=== PATIENT | female | born 2005 | race Caucasian/White ===

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

== ENCOUNTER 2023-10-15 16:36 | Inpatient (IN) | payer OTHER ==
[~2023-10-15] VITALS: Ht 144.8 cm; Wt 58.4 kg
[2023-10-16] VITALS (7 sets, daily range): BP systolic 111–113; BP diastolic 69–78; TEMP 98–100.2; O2SAT 96–98
[2023-10-16] MEDS ORDERED: MOM 30ML SUSPENSION UDC PO PRN (01:20)
[2023-10-16] MEDS ORDERED: MAALOX 30 ML SUSP *UDC PO PRN (01:20)
[2023-10-16 02:03] LABS: BASO % 0.2 % (0.0-1.0); EOS # 0.1 10^3/uL (0.0-0.5); EOS % 0.5 % (0.0-3.0); HEMATOCRIT 33.9 % (36.0-47.0); HEMOGLOBIN 11.4 g/dl (12.0-15.5); LYMPH # 1.9 10^3/uL (1.5-5.0); LYMPH % 10.2 % (24.0-44.0); MEAN CORPUSCULAR HEMOGLOBIN 29.1 pg (27.0-33.0); MEAN CORPUSCULAR HGB CONC 33.6 g/dl (32.0-36.5); MEAN CORPUSCULAR VOLUME 86.5 fl (80.0-96.0); MONO # 0.8 10^3/uL (0.0-0.8); MONO % 4.4 % (2.0-8.0); NEUTROPHILS # 15.8 10^3/uL (1.5-8.5); NEUTROPHILS % 84.1 % (36.0-66.0); PLATELET COUNT, AUTOMATED 327 10^3/uL (150-450); RED BLOOD COUNT 3.92 10^6/uL (4.00-5.40); WHITE BLOOD COUNT 18.8 10^3/uL (4.0-10.0)
[2023-10-16] MEDS: CETIRIZINE (ZyrTEC) 10 MG TAB PO SCH (02:07)
[2023-10-16] MEDS: PIPERACILLIN/TAZOBACTAM SOD 4.5 GM in D5W MINI-BAG PLUS 50 ML IV SCH (02:08)
[2023-10-16 02:14] LABS: INR 1.24; PROTHROMBIN TIME 15.2 SECONDS (12.5-14.5)
[2023-10-16 02:20] LABS: VENOUS BASE EXCESS -2.6 (-2.0-2.0); VENOUS HCO3 22.1 MMOL/L (23.0-27.0); VENOUS O2 SATURATION 85.6 % (60.0-80.0); VENOUS PARTIAL PRESSURE CO2 37.9 mmHg (38.0-50.0); VENOUS PARTIAL PRESSURE O2 50.9 mmHg (30.0-50.0); VENOUS PH 7.383 UNITS (7.330-7.430); VENOUS TOTAL CO2 23.2 MMOL/L (24.0-28.0)
[2023-10-16] MEDS: FLUTICASONE PROP 0.05% NASAL SPRAY 16 GM (FLONASE) NARES SCH (02:24)
[2023-10-16 02:35] LABS: ALKALINE PHOSPHATASE 121 U/L (46-116); ALT/SGPT 155 U/L (7.0-40); AST/SGOT 71 U/L (<34); BILIRUBIN,TOTAL 0.3 MG/DL (0.3-1.2); BLOOD UREA NITROGEN < 5 MG/DL (9-23); CALCIUM LEVEL 8.9 MG/DL (8.5-10.1); CARBON DIOXIDE LEVEL 25 MMOL/L (20-31); CHLORIDE LEVEL 108 MMOL/L (98-107); CREATININE FOR GFR 0.45 MG/DL (0.55-1.30); GLUCOSE, FASTING 114 MG/DL (60-100); MAGNESIUM LEVEL 1.8 MG/DL (1.8-2.4); POTASSIUM SERUM 3.6 MMOL/L (3.5-5.1); SODIUM LEVEL 139 MMOL/L (136-145); TOTAL PROTEIN 6.1 G/DL (5.7-8.2)
[2023-10-16] MEDS: NS 1,000 ML IV ONE (03:16)
[2023-10-16] MEDS: LINEZOLID 600 MG in IV 1 EA IV SCH (03:17)
[2023-10-16 03:47] LABS: PROCALCITONIN 0.28 ng/ml
[2023-10-16] MEDS: NS 1,000 ML IV SCH (04:18)
[2023-10-16] MEDS: ACETAMINOPHEN TAB 650MG DOSE (2X325MG) PO PRN (05:03)
[2023-10-16] MEDS: ENOXAPARIN 40MG/0.4ML SYRINGE (J1650 PER 10MG) SC SCH (08:29)
[2023-10-16] MEDS: DOCUSATE SODIUM 100MG CAPSULE PO SCH (08:30)
[2023-10-16] MEDS: NYSTATIN 500,000U/5ML SUSP UDC SS SCH (14:03)
[2023-10-16] MEDS ORDERED: HOME MED LIST COMPLETE! XX SCH (20:10)
[2023-10-17] VITALS: BP 108/71; TEMP 97.3; O2SAT 100
[2023-10-17 03:52] VITALS: BP 136/90; TEMP 97.4; O2SAT 99
[2023-10-17 05:00] LABS: HEMATOCRIT 35.3 % (36.0-47.0); HEMOGLOBIN 11.4 g/dl (12.0-15.5); MEAN CORPUSCULAR HEMOGLOBIN 28.6 pg (27.0-33.0); MEAN CORPUSCULAR HGB CONC 32.3 g/dl (32.0-36.5); MEAN CORPUSCULAR VOLUME 88.7 fl (80.0-96.0); PLATELET COUNT, AUTOMATED 366 10^3/uL (150-450); RED BLOOD COUNT 3.98 10^6/uL (4.00-5.40); WHITE BLOOD COUNT 9.3 10^3/uL (4.0-10.0)
[2023-10-17 05:41] LABS: PROCALCITONIN 0.21 ng/ml
[2023-10-17 05:48] LABS: ALKALINE PHOSPHATASE 125 U/L (46-116); ALT/SGPT 150 U/L (7.0-40); AST/SGOT 65 U/L (<34); BILIRUBIN,TOTAL 0.2 MG/DL (0.3-1.2); BLOOD UREA NITROGEN < 5 MG/DL (9-23); CALCIUM LEVEL 8.9 MG/DL (8.5-10.1); CARBON DIOXIDE LEVEL 25 MMOL/L (20-31); CHLORIDE LEVEL 110 MMOL/L (98-107); CREATININE FOR GFR 0.46 MG/DL (0.55-1.30); GLUCOSE, FASTING 98 MG/DL (60-100); MAGNESIUM LEVEL 1.9 MG/DL (1.8-2.4); POTASSIUM SERUM 3.9 MMOL/L (3.5-5.1); SODIUM LEVEL 141 MMOL/L (136-145); TOTAL PROTEIN 6.2 G/DL (5.7-8.2)
[2023-10-17 07:59] LABS: C REACTIVE PROTEIN QUANTITATIV 6.3 MG/DL (<1.0)
[2023-10-17 08:13] LABS: PROCALCITONIN 0.16 ng/ml
[2023-10-17] MEDS ORDERED: ZYVO1TAB PO (09:31)
[2023-10-17 09:35] VITALS: BP 122/74; TEMP 97.8; O2SAT 97
[2023-10-17] MEDS ORDERED: NYST-38 SS (09:57)
== END 2023-10-17 11:26 | disposition home or self-care (01) | DRG 720 ==
LOC: M PCU 10-16 00:15
PROVIDERS: ADMIT Internal Medicine; ATTEND Internal Medicine
DX: A41.9 Sepsis, unspecified organism (principal); N61.0 Mastitis without abscess; K75.81 Nonalcoholic steatohepatitis (NASH); F17.290 Nicotine dependence, other tobacco product, uncomplicated; R74.01 Elevation of levels of liver transaminase levels; E87.20 Acidosis, unspecified; E87.6 Hypokalemia; E83.42 Hypomagnesemia; L03.818 Cellulitis of other sites; Z79.899 Other long term (current) drug therapy; Z88.1 Allergy status to other antibiotic agents